=== PATIENT | female | born 1975 ===

== ENCOUNTER 2024-02-25 07:15 | Day surgery (SDC) | payer OTHER ==
[~2024-02-25] VITALS: Ht 165.1 cm; Wt 69.4 kg
[2024-02-25 08:00] LABS: HCG,QUAL RESULT NEGATIVE (NEGATIVE)
[2024-02-25] MEDS ORDERED: MIDAZOLAM HCL 5 MG/5 ML VIAL ONE ×2 (08:15→10:07)
[2024-02-25] MEDS ORDERED: MEPERIDINE 100 MG INJ. 100 MG/ML VIAL ONE (08:15)
[2024-02-25] MEDS ORDERED: DIPHENHYDRAMINE INJ 50 MG/ML VIAL ONE (10:07)
[2024-02-25] MEDS: ONDANSETRON HCL 4 MG/2 ML VIAL ONE (10:50)
[2024-02-25 14:10] VITALS: TEMP 97.6; O2SAT 99
[2024-02-25 16:11] VITALS: BP_SYST 142; PULSE 80; RESP 15
== END 2024-02-25 11:50 | disposition home or self-care (01) ==
LOC: SGI 07:15 → SMU 07:16 → SGI 11:50
PROVIDERS: ATTEND Internal Medicine Gastroenterology
DX: K62.5 Hemorrhage of anus and rectum (principal); D12.3 Benign neoplasm of transverse colon; K29.50 Unspecified chronic gastritis without bleeding; K31.89 Other diseases of stomach and duodenum; R19.4 Change in bowel habit; K21.9 Gastro-esophageal reflux disease without esophagitis; D64.9 Anemia, unspecified; K64.8 Other hemorrhoids; K44.9 Diaphragmatic hernia without obstruction or gangrene; M19.90 Unspecified osteoarthritis, unspecified site; Z90.49 Acquired absence of other specified parts of digestive tract; Z87.891 Personal history of nicotine dependence
CPT/HCPCS: 45385; 43239; 99152; 87081; 84703; 36415; 88305; 88312; 88313; 99153; G0378; J1200; J2250; J2405; J2175; 45380